=== PATIENT | male | born 1995 | race American Indian/Alaskan Native ===

== ENCOUNTER 2017-10-25 01:56 | Emergency (ER) | payer SELFPAY ==
[2017-10-25] MEDS ORDERED: BOOSTRIX IM ONE ×2 (02:38→05:32)
--- NOTE | 2017-10-25 03:05 | Cat Scan Report ---
FINAL REPORT PROCEDURE: CT HEAD/BRAIN WO CON TECHNIQUE: Computerized tomography of the head was performed without contrast material. HISTORY: S/P fall, LOC, lac over left eye brow COMPARISON: No prior studies are available for comparison. FINDINGS: Skull and scalp: Mild soft tissue swelling over the left orbit. No skull fracture. Paranasal sinuses: Normal. Ventricles and subarachnoid spaces: Normal. Cerebrum: No evidence of hemorrhage, acute infarction or mass . Cerebellum and brainstem: No evidence of hemorrhage, acute infarction or mass. Vasculature: Normal. Comments: None. IMPRESSION: There is no evidence of an acute intracranial process.
[2017-10-25 03:35] LABS: INR 0.95 (0.87-1.13)
[2017-10-25 03:36] LABS: Partial Thromboplastin Time 24.1 Sec. (24.2-36.6)
[2017-10-25 03:44] LABS: BUN/Creatinine Ratio 7; Blood Urea Nitrogen 6 mg/dL (9-20); Calcium 9.4 mg/dL (8.4-10.2); Hemolysis Index 14
[2017-10-25 03:57] LABS: Basophils # (Auto) 0.1 K/mm3 (0.0-0.1); Basophils % (Auto) 1.1 % (0.0-1.8); Eosinophils # (Auto) 0.1 K/mm3 (0.0-0.4); Eosinophils % (Auto) 1.9 % (0.0-4.3); Hematocrit 48.2 % (35.5-45.6); Hemoglobin 16.1 gm/dl (11.8-15.2); Lymphocytes # (Auto) 1.9 K/mm3 (1.2-5.4); Lymphocytes % (Auto) 34.9 % (13.4-35.0); Mean Corpuscular HGB Conc 33 % (32-34); Mean Corpuscular Hemoglobin 31 pg (28-32); Mean Corpuscular Volume 94 fl (84-94); Monocytes # (Auto) 0.9 K/mm3 (0.0-0.8); Monocytes % (Auto) 15.8 % (0.0-7.3); Platelet Count 337 K/mm3 (140-440); Red Blood Count 5.13 M/mm3 (3.65-5.03); Red Cell Distribution Width 14.5 % (13.2-15.2)
[2017-10-25 04:03] LABS: Bilirubin,Urine NEG (Negative); Blood,Urine NEG (Negative); Color,Urine Yellow (Yellow); Protein,Urine <15 mg/dL mg/dL (Negative); Urobilinogen,Urine < 2.0 mg/dL (<2.0)
[2017-10-25 04:12] LABS: Amphetamine Screen,Urine PRESUMPTIVE NEGATIVE; Benzodiazepines Screen,Urine PRESUMPTIVE NEGATIVE; Cannabinoid Screen,Urine PRESUMPTIVE NEGATIVE; Cocaine Screen,Urine PRESUMPTIVE NEGATIVE; Methadone Screen,Urine PRESUMPTIVE NEGATIVE; Opiate Screen,Urine PRESUMPTIVE NEGATIVE
[2017-10-25] MEDS ORDERED: MARCAINE 0.25% INFILTRATI ONE ×2 (06:05→06:14)
--- NOTE | 2017-10-25 06:26 | Emergency Department Report ---
ED Head Injury/Laceration HPI - HPI Occurred When: Today Mechanism: Direct Blow Location: Facial Pain: Moderate Tetanus Status: Not up to Date Symptoms: Loss of Consciousness: No, Nausea: No, Blurred Vision: No, Unusual Behavior: No, Headache: No, Swelling: No, Bruising: No, Break in Skin: Yes, Bleeding: Yes Other History: Initial Contact made with the patient at 0605. patient is a 22- year-old male presents to emergency room with complaint of fall out of a ground floor window with LOC. Patient states he lost consciousness but does not know how long. Patient recalls the entire event. Patient states he sustained a laceration above his left eye. Patient states the bleeding controlled with direct pressure. Patient states the pain is minimal. Patient states the pain is nonradiating. ED General PMH - Past Medical History General Medical History: no medical history Surgical History: no surgical history - Family History Significant Family History: no pertinent family hx - Social History Smoking Status: Former Smoker Drug Use: N (pt denies drug use./ ) ED Review of Systems ROS: Stated complaint: LT EYE AND BROW LAC Other details as noted in HPI Constitutional: denies: chills, fever Eyes: denies: eye pain, eye discharge, vision change ENT: denies: ear pain, throat pain Respiratory: denies: cough, shortness of breath, wheezing Cardiovascular: denies: chest pain, palpitations Endocrine: no symptoms reported Gastrointestinal: denies: abdominal pain, nausea, diarrhea Genitourinary: denies: urgency, dysuria Musculoskeletal: denies: back pain, joint swelling, arthralgia Skin: denies: rash, lesions Neurological: denies: headache, weakness, paresthesias Psychiatric: denies: anxiety, depression Hematological/Lymphatic: denies: easy bleeding, easy bruising Head Inj w/lac Physical Exam - Exam General: Vital signs noted. No distress. Alert and acting appropriately. Lung sounds clear to auscultation. CV exam normal limit normal S1 and S2. No murmurs noted. Pupils are equal and reactive to light and accommodation. GSC 15. Patient is a and O 4. Cranial nerves intact Head: Yes PERRL, No Hemotympanum, No Hematoma/Ecchymosis, No Epistaxis, No Stepoff/Deformity, No Abrasion, No Foreign Body Laceration Location: Facial Chest, Abd, & Ext: Yes Clear Lung Sounds, Yes Regular Heart Rhythm, No Neck Pain , No Chest Injury/Pain, No Heart Murmur, No Abdominal Tenderness, No Back Tenderness, No Extremity Injury Neuroligical (Head Inj W/O Lac: No Lethargy, No Disorientation, No Focal Numbness, No Focal Weakness, No Normal Speech, No Normal Gait Exam: HISTORY: S/P fall, LOC, lac over left eye brow. COMPARISON: No prior studies are available for comparison. FINDINGS: Skull and scalp: Mild soft tissue swelling over the left orbit. No skull fracture. Paranasal sinuses: Normal. Ventricles and subarachnoid spaces: Normal. Cerebrum: No evidence of hemorrhage, acute infarction or mass . Cerebellum and brainstem: No evidence of hemorrhage, acute. infarction or mass. Vasculature: Normal. Comments: None. IMPRESSION: There is no evidence of an acute intracranial process. Transcribed By: [facility]. Dictated By: TIFFANIE SUAREZ MD. Electronically Authenticated By: TIFFANIE SUAREZ MD. Signed Date/Time: 10/25/17 0258. AT 07: 00. pt talking and abulatory with out problems. pt talking clear. pt A&OX4. pt voiced understanding of d/c instructions and plan of care. Patient given wound care and suture care instructions. Patient to take meds as directed. Patient instructed to follow up with primary care in 7-10 days to have his sutures removed. Infection precautions given to patient - Laceration /Wound Repair Left Face Wound Location: face Wound's Depth, Shape: superficial, linear Wound Explored: clean Betadine Prep?: Yes Anesthesia: 1% Lidocaine Volume Anesthetic (ccs): 5 Wound Debrided: minimal Wound Repaired With: sutures Suture Size/Type: 4:0 Number of Sutures: 8 Layer Closure?: No Sterile Dressing Applied?: Yes Progress: 3 cm lack noted above left eye with an eyebrow. Laceration was closed with simple interrupted sutures. 8 placed. Patient tolerated procedure well. Bleeding controlled. Sterile dressing applied ED Disposition Clinical Impression: Laceration Concussion Qualifiers: Encounter type: initial encounter Loss of consciousness presence/duration: with LOC of 30 min or less Qualified Code(s): S06.0X1A - Concussion with loss of consciousness of 30 minutes or less, initial encounter Acute alcohol intoxication Qualifiers: Complication of substance-induced condition: uncomplicated Qualified Code(s): F10.929 - Alcohol use, unspecified with intoxication, unspecified Disposition: DC-01 TO HOME OR SELFCARE Is pt being admited?: No Does the pt Need Aspirin: No Condition: Stable Instructions: Suture Care (ED), Laceration (ED), Concussion (ED) Additional Instructions: Patient to follow-up with primary care in 3-5 days. Patient to have sutures removed in 7-10 days by primary care. Patient to return to ER if condition worsens. Signs and symptoms of infection discussed with patient. Patient to take ibuprofen and Tylenol when necessary for pain patient to do wound care as discussed. Patient to leave laceration dry for 48 hours. Concussion precautions discussed with patient Prescriptions: Sulfamethoxazole/Trimethoprim [Bactrim DS TAB] 1 each PO BID 5 Days #10 tablet Referrals: PRIMARY CARE, [Primary Care Provider] - 3-5 Days Time of Disposition: 07:07
[2017-10-25] MEDS ORDERED: XYLOCAINE 1%/ EPI 1:100,000 INFILTRATI NR (07:00)
[2017-10-25 07:25] VITALS: BP 142/90
== END 2017-10-25 07:23 | disposition home or self-care (01) ==
LOC: ED 01:56
DX: S06.0X1A Concussion with loss of consciousness of 30 minutes or less, initial encounter (principal); S01.112A Laceration without foreign body of left eyelid and periocular area, initial encounter; F10.929 Alcohol use, unspecified with intoxication, unspecified; Z87.891 Personal history of nicotine dependence; Z79.899 Other long term (current) drug therapy; W17.89XA Other fall from one level to another, initial encounter; Y93.89 Activity, other specified; Y99.8 Other external cause status; Y92.89 Other specified places as the place of occurrence of the external cause
CPT/HCPCS: 12013; 36415; 70450; 80048; 80307; 81001; 85025; 85610; 85730; 90471; 90715; 99284; G0480; 80320